=== PATIENT | male | born 2000 | race American Indian/Alaskan Native ===

== ENCOUNTER 2023-04-05 01:28 | Emergency (ER) | payer OTHER ==
[2023-04-05 01:49] VITALS: BP 114/80; PULSE 72; RESP 18; TEMP 98.3; BMI 18.4
== END 2023-04-05 03:43 | disposition left against medical advice (07) ==
LOC: JER 01:28
DX: M54.50 Low back pain, unspecified (principal); V89.2XXA Person injured in unspecified motor-vehicle accident, traffic, initial encounter
CPT/HCPCS: 99281-25

== ENCOUNTER 2023-06-03 01:14 | Emergency (ER) | payer OTHER ==
[2023-06-03 01:30] VITALS: BP 100/60; PULSE 63; RESP 18; TEMP 98.2; BMI 18.4
[2023-06-03] MEDS ORDERED: ACETAMINOPHEN 325 MG TABLET (FP) ONE (02:23)
[2023-06-03] MEDS: ACETAMINOPHEN 500 MG TABLET (FP) PO ONE (02:23)
[2023-06-03] MEDS ORDERED: CEPHALEXIN MONOHYDRATE 500 MG CAPSULE (UD) ONE (04:01)
[2023-06-03] MEDS: CEPHALEXIN MONOHYDRATE 500 MG CAPSULE (UD) PO ONE (04:02)
== END 2023-06-03 04:06 | disposition home or self-care (01) ==
LOC: JER 01:14
DX: S62.511A Displaced fracture of proximal phalanx of right thumb, initial encounter for closed fracture (principal); M79.644 Pain in right finger(s); W23.0XXA Caught, crushed, jammed, or pinched between moving objects, initial encounter; Y99.0 Civilian activity done for income or pay
CPT/HCPCS: 73130-TC-RT-FY; 99283-25

== ENCOUNTER 2023-06-19 11:16 | Emergency (ER) | payer OTHER ==
[2023-06-19 11:21] VITALS: RESP 18; BMI 18.4
[2023-06-19] MEDS ORDERED: IBUPROFEN 400 MG TABLET (FP) PO ONE (12:21)
[2023-06-19] MEDS ORDERED: ACETAMINOPHEN 500 MG TABLET (FP) ONE (12:22)
[2023-06-19] MEDS ORDERED: METHOCARBAMOL 500 MG TABLET ONE (12:22)
[2023-06-19] MEDS: METHOCARBAMOL 500 MG TABLET PO ONE (12:28)
[2023-06-19] MEDS: IBUPROFEN 400 MG TABLET (FP) PO ONE (12:28)
[2023-06-19] MEDS: ACETAMINOPHEN 500 MG TABLET (FP) PO ONE (12:29)
[2023-06-19 13:42] VITALS: BP 108/88; PULSE 50; TEMP 98.4
== END 2023-06-19 14:58 | disposition home or self-care (01) ==
LOC: JERFT 11:16
DX: M54.50 Low back pain, unspecified (principal); M54.2 Cervicalgia; V49.40XA Driver injured in collision with unspecified motor vehicles in traffic accident, initial encounter; Y92.410 Unspecified street and highway as the place of occurrence of the external cause
CPT/HCPCS: 72100-TC-FY; 99283-25

== ENCOUNTER 2024-07-20 11:54 | Emergency (ER) | payer OTHER ==
[2024-07-20 12:05] VITALS: BP 122/68; PULSE 74; RESP 18; TEMP 98; BMI 19.0
[2024-07-20] MEDS ORDERED: ACETAMINOPHEN 500 MG TABLET (FP) ONE (12:58)
[2024-07-20] MEDS: ACETAMINOPHEN 500 MG TABLET (FP) PO ONE (13:01)
== END 2024-07-20 14:50 | disposition home or self-care (01) ==
LOC: JER 11:54
DX: S60.931A Unspecified superficial injury of right thumb, initial encounter (principal); W22.01XA Walked into wall, initial encounter; Y99.0 Civilian activity done for income or pay
CPT/HCPCS: 73130-TC-RT-FY; 99283-25